=== PATIENT | male | born 1975 | race Caucasian/White ===

== ENCOUNTER → 2021-03-08 07:06 | Outpatient (CLI) | payer OTHER, SELFPAY ==
[2021-03-08 17:57] LABS: SARS-CoV-2 RNA PCR Negative
== END ==
PROVIDERS: PCP Family Medicine; Visit Provider Physician Assistant
DX: R05 Cough (principal); Z20.822 Contact with and (suspected) exposure to COVID-19
CPT/HCPCS: C9803; U0003; U0005

== ENCOUNTER → 2022-08-26 10:02 | Outpatient (CLI) | payer OTHER, SELFPAY ==
--- NOTE | ~2022-08-26 | XR_ITS ---
EXAMINATION: XR lumbar spine min 4V DATE: 08/26/2022 10:18 INDICATION: Left hip pain TECHNIQUE: Anteroposterior, lateral, and bilateral oblique views of the lumbar spine, and cone-down l ateral view of the lumbosacral junction were obtained. COMPARISON: None. FINDINGS: There is no fracture, dislocation, or subluxation. The vertebral body heights are normal. T here is mild loss of intervertebral disc space height at L5-S1. Small degenerative osteophytes projec t from the anterior endplates of multiple vertebral bodies. There is mild to moderate facet osteoarth ritis of the lower lumbar spine. The bowel gas pattern is normal. IMPRESSION: 1. Mild lumbar spondylosis without acute findings. Reviewed, dictated and finalized at location A.
== END ==
PROVIDERS: PCP Family Medicine; Visit Provider Physician Assistant Medical
DX: M47.26 Other spondylosis with radiculopathy, lumbar region (principal)
CPT/HCPCS: 72110

== ENCOUNTER → 2022-10-31 11:31 | Outpatient (CLI) | payer OTHER, SELFPAY ==
--- NOTE | ~2022-10-31 | MR_ITS ---
EXAMINATION: MR lumbar spine wo con DATE: 10/31/2022 11:56 INDICATION: Low back pain radiating down the left leg. TECHNIQUE: Magnetic resonance imaging (MRI) of the lumbar spine was performed without intravenous con trast. Sequences included sagittal T2-weighted FSE, sagittal T2-weighted FS FSE, sagittal T1-weighted FSE, and axial T2-weighted FSE. COMPARISON: Lumbar spine radiographs 08/26/2022 FINDINGS: There is 5 degrees dextrocurvature of thoracolumbar spine. Vertebral body heights are carrol l. There is moderately decreased disc height at L5-S1. The distal spinal cord signal intensity is nor mal. The conus medullaris is at T12-L1. The following disc levels are specifically discussed: L1-L2: The disc does not extend beyond the endplate margin. There is mild bilateral facet joint osteo arthritis. There is no neural foraminal stenosis. There is no central canal stenosis. L2-L3: The disc does not extend beyond the endplate margin. There is mild left facet joint osteoarthr itis. There is no neural foraminal stenosis. There is no central canal stenosis. L3-L4: The disc is mildly bulging. There is mild bilateral facet joint osteoarthritis. There is mild bilateral neural foraminal stenosis. There is no central canal stenosis. L4-L5: The disc does not extend beyond the endplate margin. There is severe bilateral facet joint ost eoarthritis. There is mild left neural foraminal stenosis. There is no central canal stenosis. L5-S1: There is a broad-based protrusion centered in the central zone with annular fissure. There is moderate bilateral facet joint osteoarthritis. There is mild lateral neural foraminal stenosis. There is mild central canal stenosis. IMPRESSION: 1. Moderate lower lumbar spondylosis. Reviewed, dictated and finalized at location A. 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
== END ==
PROVIDERS: PCP Family Medicine; Visit Provider Physician Assistant
DX: M47.896 Other spondylosis, lumbar region (principal)
CPT/HCPCS: 72148

== ENCOUNTER 2023-06-27 11:08 | Emergency (ER) | payer OTHER, SELFPAY ==
[2023-06-27 11:11] VITALS: BP 147/87; PULSE 73; RESP 16; TEMP 36.8; O2SAT 98
--- NOTE | 2023-06-27 11:14 | ECG_ITS ---
Measurements Intervals [place] Rate: 74 P: 33 [place]: 168 QRS: 6 QRSD: 97 T: 8 QT: 370 QTc: 412 Interpretive Statements SINUS RHYTHM INCOMPLETE RIGHT BUNDLE BRANCH BLOCK DELAYED PRECORDIAL R/S TRANSITION VOLTAGE CRITERIA FOR LVH BORDERLINE ECG NO PREVIOUS ECG AVAILABLE FOR COMPARISON Electronically Signed On 06-27-2023 19:42:23 CDT by Brian Manning D.O.
[2023-06-27 11:18] VITALS: BP 130/82; PULSE 83; RESP 18; O2SAT 95
[2023-06-27 11:33] VITALS: BP 139/88; BP 150/82; PULSE 77; PULSE 86
[2023-06-27 11:35] VITALS: BP 149/93; PULSE 98
[2023-06-27 12:15] LABS: Basophils Absolute Auto 0.1 K/mm3 (0.0-0.1); Basophils Percent Auto 0.6 % (0.2-1.2); Eosinophils Percent Auto 0.1 % (0-4.4); Hematocrit 46.4 % (42.0-52.0); Hemoglobin 15.8 g/dL (14.0-18.0); Immature Granulocyte Absolute 0.06 K/mm3 (0.00-0.031); Immature Granulocyte Percent A 0.5 % (0-0.5); Lymphocytes Absolute Auto 1.65 K/mm3 (0.9-3.2); Lymphocytes Percent Auto 14.8 % (18.3-44.2); Mean Corpuscular HGB Conc 34.1 g/dl (32-36); Mean Corpuscular Hemoglobin 32.1 pg (26-34); Mean Corpuscular Volume 94.3 fl (80-100); Mean Platelet Volume 10.8 fl (7.4-10.4); Monocytes Absolute Auto 0.4 K/mm3 (0.1-0.6); Monocytes Percent Auto 3.7 % (2.6-8.5); Neutrophils Absolute Auto 8.9 K/mm3 (1.3-6.7); Neutrophils Percent Auto 80.3 % (45.5-73.1); Platelet Count Result 181 k/mm3 (150-375); Red Blood Count 4.92 M/mm3 (4.6-6.20); Red Cell Distribution Width 13.3 % (11.5-14.5); White Blood Count 11.1 K/mm3 (4.5-10.0)
--- NOTE | 2023-06-27 12:21 | ED.DIZZY ---
HPI - Dizziness General Chief Complaint: Dizziness Stated Complaint: SOB, dizzy Time Seen by Provider: 06/27/23 12:20 Source: patient and family Mode of arrival: ambulatory Limitations: no limitations History of Present Illness HPI Narrative: Patient is status post right upper teeth dental work yesterday at 4:30 PM, got discharged on prednisone and Tylenol. After getting home started having headache, right facial pain, and dizziness. Patient is telling me that his dentist is off today.. He denies any fever, chills, nausea, vomiting, chest pain, back pain or trouble breathing. Currently his main complaint is right facial pain. Related Data Home Medications Medication Instructions Recorded Confirmed multivitamin 1 tablet PO DAILY 02/14/21 01/09/23 Allergies Allergy/AdvReac Type Severity Reaction Status Date / Time cyclobenzaprine AdvReac Severe Nausea Verified 01/09/23 09:43 Review of Systems Review of Systems: All systems reviewed & are unremarkable except as noted in HPI and below PMFSH Past Medical History Medical History Eczema Flank pain, acute Healthy adult Lumbar spondylosis Tobacco abuse Surgical History Surgical History No pertinent past surgical history Family History Family History Father Eczema Social History Social History Smoking packs per day: 0.75 Smoking cigarettes per day: 15.0 Years smoked: 25 Smoking pack-years: 18.75 Smoking status: Current every day smoker Tobacco type: cigarettes Second hand tobacco smoke exposure: Yes Alcohol intake: current Drinks per week: 15 Substance use: never Substance use type: does not use Living arrangements: with family Occupation/Education: occupation Gender identity (if verbalized by the patient): Male Exam Narrative: General appearance: Well-developed, well-nourished Skin: Normal color Head: Normocephalic, nontraumatic Eyes: Clear conjunctiva ENT: Oropharynx normal, ears normal, nose normal, diffuse dental decay upper and lower teeth. No abscess formation. Diffuse tenderness. No swelling or discharge Neck: Supple, nontender Chest and respiratory: Airway patent, no respiratory distress, no accessory muscle use Heart: Regular rate/rhythm Abdomen: Soft, nontender, no organomegaly, quiet bowel sounds Vascular: Normal peripheral pulses, normal capillary refill. 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 tested, no gross motor deficit Course Vital Signs Vital signs: Vital Signs Temperature 36.8 C 06/27/23 11:11 Pulse Rate 73 06/27/23 11:11 Respiratory Rate 16 06/27/23 11:11 Blood Pressure 147/87 H 06/27/23 11:11 Pulse Oximetry 98 06/27/23 11:11 Oxygen Delivery Room Air 06/27/23 11:11 Temperature 36.8 C 06/27/23 11:11 Pulse Rate 98 06/27/23 11:35 Respiratory Rate 18 06/27/23 11:18 Blood Pressure 149/93 H 06/27/23 11:35 Pulse Oximetry 95 06/27/23 11:18 Oxygen Delivery Room Air 06/27/23 11:18 MDM - Dizziness MDM Narrative Medical decision making narrative: Patient developed lightheadedness, dizziness, right facial pain within 2 hours after dental procedure yesterday. Patient could not follow-up with his dentist today because the clinic is closed. Patient started on prednisone yesterday. Physical exam was remarkable for dental pain right upper and lower teeth with diffuse dental decay. No swelling or abscess for
[2023-06-27 12:27] LABS: Alanine Aminotransferase 70 U/L (6-50); Albumin Level 4.8 g/dL (3.5-5.1); Alkaline Phosphatase 56 U/L (38-126); Anion Gap 11 mmol/L (8-16); Aspartate Amino Transferase 42 U/L (17-59); Bilirubin,Total 0.8 mg/dL (0.2-1.3); Blood Urea Nitrogen 13 mg/dL (9-20); Calcium 9.6 mg/dL (8.4-10.2); Carbon Dioxide 23 mmol/L (22-30); Chloride 104 mmol/L (98-107); Estimated CRCL calculation 119 ml/min; Estimated Glomerular Filt Rate > 60; Glucose 166 mg/dL (65-110); Potassium 4.7 mmol/L (3.4-5.0); Sodium 138 mmol/L (137-145)
[2023-06-27 13:12] VITALS: BP 144/83; PULSE 61; RESP 16; O2SAT 96
== END 2023-06-27 13:14 | disposition home or self-care (01) ==
PROVIDERS: Preventive Medicine Aerospace Medicine; Emergency Provider Emergency Medicine; PCP Family Medicine
DX: K02.9 Dental caries, unspecified (principal); F17.210 Nicotine dependence, cigarettes, uncomplicated; I45.10 Unspecified right bundle-branch block
CPT/HCPCS: 36415; 80053; 85025; 93005; 99284

== ENCOUNTER 2024-11-12 15:20 | Emergency (ER) | payer OTHER, SELFPAY ==
--- NOTE | ~2024-11-12 | XR_ITS ---
EXAMINATION: XR humerus RT DATE: 11/12/2024 15:53 INDICATION: Right biceps injury. Right upper arm pain. TECHNIQUE: 2 views of the right humerus were obtained. COMPARISON: None. FINDINGS: Alignment is normal. No fracture. There is mild osteoarthritis of glenohumeral joint and se monster osteoarthritis of acromioclavicular joint. IMPRESSION: 1. Polyarticular osteoarthritis. Reviewed, dictated and finalized at location A. E CUTTER
[2024-11-12 15:23] VITALS: BP 124/94; PULSE 79; RESP 20; TEMP 37.1; O2SAT 97
--- NOTE | 2024-11-12 15:33 | ED_ITS ---
[facility] - General Adult General Chief complaint: Extremity Injury, Upper Stated complaint: arm injury Time Seen by Provider: 11/12/24 15:31 Source: patient Mode of arrival: ambulatory Limitations: no limitations History of Present Illness HPI narrative: This is of 49-year-old male who presents to the ED for chief complaint of right biceps injury at work today. Occurred around 1300. 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 He has concern for possible biceps tear. Denies numbness or weakness or further injury. Related Data Home Medications ?Medication ?Instructions ?Recorded ?Confirmed ?Last Taken ?Type multivitamin 1 tablet PO DAILY 02/14/21 01/09/23 Unknown History Allergies Allergy/AdvReac Type Severity Reaction Status Date / Time cyclobenzaprine AdvReac Severe Nausea Verified 11/12/24 15:26 Review of Systems Review of Systems: All systems as dictated in [facility] PMFSH Past Medical History Medical History Eczema Flank pain, acute Healthy adult Lumbar spondylosis Tobacco abuse Surgical History Surgical History No pertinent past surgical history Family History Family History Father Eczema Social History Social History Smoking packs per day: 0.75 Smoking cigarettes per day: 15.0 Years smoked: 25 Smoking pack-years: 18.75 Smoking status: Current every day smoker Tobacco type: cigarettes Second hand tobacco smoke exposure: Yes Alcohol intake: current Drinks per week: 15 Substance use: never Substance use type: does not use Living arrangements: with family Occupation/Education: occupation Gender identity (if verbalized by the patient): Male Exam Narrative: GENERAL: Well-appearing, well-nourished, and in no acute distress. MSK: RUE: Romeo deformity in the right biceps. No ecchymosis. Tenderness along the biceps origin site. He does have strength maintained with resisted flexion of the right elbow. Neurovascular intact distally. LUE: Benign SKIN: Warm, dry, no rash. NEURO: Alert and oriented x4. No focal deficits. PSYCH: Normal mood and affect. Course Vital Signs Vital signs: Vital Signs Temperature 98.8 F 11/12/24 15:23 Pulse Rate 79 11/12/24 15:23 Respiratory Rate 20 11/12/24 15:23 Blood Pressure 124/94 H 11/12/24 15:23 Pulse Oximetry 97 11/12/24 15:23 Oxygen Delivery Room Air 11/12/24 15:23 Temperature 98.8 F 11/12/24 15:23 Pulse Rate 79 11/12/24 15:23 Respiratory Rate 20 11/12/24 15:23 Blood Pressure 124/94 H 11/12/24 15:23 Pulse Oximetry 97 11/12/24 15:23 Oxygen Delivery Room Air 11/12/24 15:23 Medical Decision Making MDM Narrative Medical decision making narrative: This is a 49-year-old male who presents to the ED for chief complaint of right biceps injury today follow-up work.. Vitals are normal. Exam shows pop by deformity of the right biceps however he is maintaining some strength on that right side Right humerus x-ray is negative. Presentation is consistent with biceps strain/rupture. There is no bruising. He still has some strength so do not feel this is a full biceps brachii rupture. Encouraged to follow-up with orthopedics on this issue. Arm sling was given for comfort. Patient will be discharged in stable condition. Supportive measures discussed and return precautions given. Patient is understanding and agreeable with plan for discharge with PCP follow-up. Vital Signs Vital Signs: Vital Signs Temperature 98.8 F 11/12/24 15:23 Pulse Rate 79 11/12/24 15:23 Respiratory Rate 20 11/12/24 15:23 Blood Pressure 124/94 H 11/12/24 15:23 Pulse Oximetry 97 11/12/24 15:23 Oxygen Delivery Room Air 11/12/24 15:23 Temperature 98.8 F 11/12/24 15:23 Pulse Rate 79 11/12/24 15:23 Respiratory Rate 20 11/12/24 15:23 Blood Pressure 124/94 H 11/12/24 15:23 Pulse Oximetry 97 11/12/24 15:23 Oxygen Delivery Room Air 11/12/24 15:23 Discharge Plan Discharge Clinical Impression: Biceps rupture, distal Patient Disposition: Home, Self-Care Condition: Stable Instructions: Antibiotic Form Additional Instructions: Your exam today does show evidence of probable biceps rupture. Please follow-up with orthopedics for further evaluation of this issue. Use sling until otherwise directed. Take Tylenol and ibuprofen every 4-6 hours as needed for pain control. If you have any new or worsening symptoms please return to the ER for further evaluation. Patient Language: Arabic Prescriptions: No Action multivitamin Tablet 1 tablet PO DAILY penicillin V potassium 500 mg tablet 500 mg PO Q6H Qty: 40 0RF naproxen [EC-Naprosyn] 500 mg tablet,delayed release (DR/EC) 500 mg PO BID PRN (Reason: pain) Qty: 14 0RF ibuprofen 600 mg tablet 600 mg PO Q6H PRN (Reason: pain) Qty: 90 0RF Follow-up/Referrals: Lazaro Diaz MD [Physician] - Mecca Schuler MD [Primary Care Provider] - Time of Disposition: 16:14
== END 2024-11-12 16:20 | disposition home or self-care (01) ==
PROVIDERS: Emergency Provider Physician Assistant; PCP Family Medicine
DX: S46.211A Strain of muscle, fascia and tendon of other parts of biceps, right arm, initial encounter (principal); F17.210 Nicotine dependence, cigarettes, uncomplicated; X50.0XXA Overexertion from strenuous movement or load, initial encounter
CPT/HCPCS: 73060; 99283; A4565

== ENCOUNTER 2024-12-13 12:29 | Outpatient (CLI) | payer OTHER, SELFPAY ==
--- NOTE | ~2024-12-13 | MR_ITS ---
EXAMINATION: MR elbow RT wo con DATE: 12/13/2024 13:12 INDICATION: Recent tendon rupture post lifting injury one month prior with bruising and lump at the d istal upper. TECHNIQUE: Magnetic resonance imaging (MRI) of the right elbow was performed without intravenous cont rast. Sequences included coronal, axial, and sagittal PD-weighted FS FSE and coronal, axial, and sagi ttal PD-weighted FSE. COMPARISON: None FINDINGS: Osseous/other: Normal alignment. Normal marrow signal with no marrow edema, fracture, osteochondral lesion or patho logic marrow replacing process. Tendons: Triceps and brachialis tendons are normal. Complete tear and distal retraction of the biceps brachii tendon. There is some residual frayed tendon material at the radial tuberosity footplate. The proxima l tear margin is retracted approximately 5 cm. There is a small amount of fluid along the retracted t endon and distal most myotendinous junction. Moderate tendinopathy extends 2 cm proximally from the p roximal tear margin. Mild tendinopathy without tear at the medial epicondylar origin of the common fl exor tendon wad. Mild tendinopathy without tear at the lateral epicondylar origin of the common exten sor tendon wad. Ligaments: The medial and lateral collateral ligament complexes are normal. Cubital tunnel: Cubital tunnel is unremarkable with normal signal and caliber of the ulnar nerve. Fluid: Physiologic amount of fluid the elbow joint. IMPRESSION: 1. Moderate distal biceps brachii tendinopathy with full-thickness tear near the distal insertion and 5 cm proximal retraction 2. Mild tendinopathy without discrete tear at the medial and lateral epicondylar origins of the commo n flexor tendon wad and common extensor tendon wad respectively. Reviewed, dictated and finalized at location B. TE PL[employer]ING [employer] IMPRESSION: 1. Moderate distal biceps brachii tendinopathy with full-thickness tear near th e distal insertion and 5 cm proximal retraction 2. Mild tendinopathy without discrete tear at the medial and lateral epicondyla r origins of the common flexor tendon wad and common extensor tendon wad respec tively.
== END 2024-12-13 12:30 | disposition home or self-care (01) ==
PROVIDERS: PCP Family Medicine; Visit Provider Orthopaedic Surgery
DX: S46.211A Strain of muscle, fascia and tendon of other parts of biceps, right arm, initial encounter (principal); X58.XXXA Exposure to other specified factors, initial encounter
CPT/HCPCS: 73221